=== PATIENT | male | born 1945 | race Caucasian/White ===

== ENCOUNTER 2019-09-26 20:23 | Inpatient (IN) | payer MEDICARE, OTHER ==
[~2019-09-26] VITALS: Ht 165.1 cm; Wt 59.9 kg
--- NOTE | 2019-09-26 21:07 | NUR ---
Pt medically cleared by Dr. Chang.
[2019-09-26] MEDS ORDERED: ATOR40TA PO (21:33)
[2019-09-26] MEDS ORDERED: ALBU8.5H8 IH (21:33)
[2019-09-26] MEDS ORDERED: MEMA5TAB15 PO (21:33)
[2019-09-26] MEDS ORDERED: TIOT18CA3 IH (21:33)
[2019-09-26] MEDS ORDERED: SACU1TAB PO (21:33)
[2019-09-26] MEDS ORDERED: FURO-152 PO (21:33)
[2019-09-26] MEDS ORDERED: FLUT1DIS29 IH (21:33)
--- NOTE | 2019-09-26 21:43 | NUR ---
Report given to Elvi CHAVEZ MHU.
--- NOTE | 2019-09-26 22:10 | NUR ---
New Admit Patient received into care from ED alert/oriented x1. Patient is pleasant and calm, with no complaints of pain or discomfort at this time. Patient is a poor historian related to his diagnosis of dementia. Medical history was mostly received from records of previous visits to [facility] from where patient was transferred. Patient has a history of diabetes mellitus 2, dementia, COPD, CHF, and atypical chest pain. All pertinent assessments were completed. Patient has no SI and has contracted to safety should SI arise. VS are wnl and patient is stable. Will continue to monitor.
[2019-09-26] MEDS ORDERED: ALBUTEROL SULFATE 8 GM HFA.AER.AD IH PRN (22:15)
[2019-09-26] MEDS ORDERED: ACETAMINOPHEN 325 MG TABLET PO PRN (23:15)
[2019-09-26] MEDS ORDERED: MAG HYDROX/AL HYDROX/SIMETH 30 ML LIQUID UDC PO PRN (23:15)
[2019-09-26] MEDS ORDERED: TEMAZEPAM 7.5 MG CAPSULE PO PRN (23:15)
[2019-09-26] MEDS ORDERED: LORAZEPAM 1 MG TABLET PO PRN (23:15)
[2019-09-26] MEDS ORDERED: BLOOD SUGAR DIAGNOSTIC 1 EACH STRIP VI ONE (23:15)
[2019-09-26] MEDS ORDERED: MAGNESIUM HYDROXIDE 30 ML LIQUID UDC PO PRN (23:15)
--- NOTE | 2019-09-27 06:57 | NUR ---
Patient slept comfortably after admission to department for a total of 5.15 hours. Patient had no complaints of pain or discomfort this shift and was compliant with all aspects of care. All nursing needs were met promptly and patient is resting comfortably in bed.
[2019-09-27 07:26] LABS: BILIRUBIN,TOTAL 0.4 mg/dL (0.2-1.0); POTASSIUM 4.1 mmol/L (3.5-5.1); TOTAL PROTEIN, SERUM 5.6 g/dL (6.4-8.2)
[2019-09-27 07:30] VITALS: BP 111/62
[2019-09-27 07:32] LABS: BASOPHILS # (AUTO) 0.1 K/uL (0.0-8.0); BASOPHILS % (AUTO) 1.3 % (0.0-2.0); EOSINOPHILS # (AUTO) 0.6 K/uL (0.0-0.7); EOSINOPHILS % (AUTO) 8.8 % (0.0-7.0); HEMATOCRIT 44.4 % (36.7-47.1); HEMOGLOBIN 14.5 g/dL (12.5-16.3); LYMPHOCYTES # (AUTO) 1.5 K/uL (20.0-40.0); LYMPHOCYTES % (AUTO) 21.2 % (20.5-51.5); MEAN CORPUSCULAR HEMOGLOBIN 30.6 uug (23.8-33.4); MEAN CORPUSCULAR HGB CONC 33 g/dL (32.5-36.3); MEAN CORPUSCULAR VOLUME 93.8 fL (73.0-96.2); MONOCYTES # (AUTO) 0.8 K/uL (2.0-10.0); MONOCYTES % (AUTO) 10.9 % (0.0-11.0); NEUTROPHILS # (AUTO) 4.1 K/uL (1.8-8.9); NEUTROPHILS % (AUTO) 57.8 % (38.5-71.5); PLATELET COUNT (AUTO) 203 K/uL (152-348); RED BLOOD CELL COUNT(AUTO) 4.73 MIL/uL (4.06-5.63); WHITE BLOOD COUNT (AUTO) 7.1 K/uL (3.6-10.2)
[2019-09-27] MEDS ORDERED: FLUTICASONE/SALMETEROL 500/50 EACH DISK.W.DEV IH SCH (09:00)
[2019-09-27] MEDS ORDERED: MEMANTINE HCL 5 MG TABLET PO SCH (09:00)
[2019-09-27] MEDS: FUROSEMIDE 20 MG TABLET PO SCH (09:03)
--- NOTE | 2019-09-27 13:25 | NUR ---
emergency service worker called pts Upholstery Estimator, Sanchez Valentin [[phone]] from Adult [employer] in attempts to gather further next of kin information for pt. SW left voicemail and will attempt to call Upholstery Estimator again at a later time.
--- NOTE | 2019-09-27 13:28 | NUR ---
solid waste collection worker called pts friend, Karo [[phone]], from to gather further next of kin information for pt. SW left voicemail and will attempt to call again at a later time.
[2019-09-27] MEDS: FLUTICASONE/VILANTEROL 1 EACH BLST.W.DEV INH SCH (13:54)
[2019-09-27] MEDS: IPRATROPIUM BROMIDE 0.5 MG/2.5 ML NEBU NEB SCH ×2 (14:00→18:07)
--- NOTE | 2019-09-27 14:02 | NUR ---
Initial discharge plan: Pt lives in his personal home located at [address] [place] [address]; [phone], with his roomate Tahmina. Pt provided consent to speak with his friend Tahmina [[phone]] regarding his hospitalization and discharge plan. Pt would like to discharge back home when ready. SW will work with pt, pt family, and MD to form a safe and proper discharge.
--- NOTE | 2019-09-27 15:46 | NUR ---
Family Contact: ammonia worker spoke with pts friend Karo [[phone]] who directed SW to speak with pts roomate, Tahmina Parra [[phone]], as she is the best contact to notify of pts plan of care and discharge planning.
--- NOTE | 2019-09-27 15:48 | NUR ---
Family contact: propeller layout worker spoke with pts aureluis Martel [[phone]] who shared that pt may need placement and higher level of care due to his dementia and because she is not well as she is receiving chemotherapy for cancer. SW will continue to work with pt, pt family, and MD to form a safe and proper discharge. SW will remain available to pt and pt family.
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
[2019-09-27 16:30] VITALS: BP 117/74
--- NOTE | 2019-09-27 16:59 | NUR ---
Gps/Dray Driver- Petr (step-son) from [place], [place]. called gave his tel # [phone], can call him anytime if needed . Claimed evety time this month , patient having difficulty related to his mother a year ago () . He was a Vet. and claimed he has full coverage . Exposed to H/orange that is why needed his inhalers .
[2019-09-27] MEDS ORDERED: PNEUMOCOCCAL 23-VAL P-SAC VAC 0.5 ML VIAL IM ONE (17:00)
[2019-09-27] MEDS ORDERED: INFLUENZA VACCINE 2019-2020 0.5 ML DISP.SYRIN IM ONE (17:00)
--- NOTE | 2019-09-27 19:30 | NUR ---
Received patient resting in bed, easily to arouse. A/Ox3. No signs of acute distress noted. No complaints at this time. Will continue to monitor.
[2019-09-27 20:18] VITALS: BP 104/63
[2019-09-27] MEDS: ATORVASTATIN 40 MG TABLET PO SCH (20:57)
--- NOTE | 2019-09-27 21:32 | NUR ---
Administered Pneumonia vaccine to the left deltoid. Was not administered during scheduled time due to medication not being available in the unit. Patient tolerated well. Will continue to monitor.
[2019-09-27] MEDS: risperiDONE 0.5 MG TABLET PO SCH (22:53)
[2019-09-27] MEDS: RIVASTIGMINE TARTRATE 1.5 MG CAPSULE PO SCH (22:53)
--- NOTE | 2019-09-27 23:32 | NUR ---
Patient seen and examined by Dr. Aguilar, with new orders noted and carried out.
[2019-09-28] MEDS: ALBUTEROL SULFATE 2.5 MG/3 ML NEBU NEB PRN ×2 (01:07→08:35)
[2019-09-28] MEDS: IPRATROPIUM BROMIDE 0.5 MG/2.5 ML NEBU NEB SCH ×5 (01:07→19:46)
[2019-09-28 08:00] VITALS: BP 95/56
[2019-09-28] MEDS: RIVASTIGMINE TARTRATE 1.5 MG CAPSULE PO SCH ×2 (08:27→20:21)
[2019-09-28] MEDS: risperiDONE 0.5 MG TABLET PO SCH ×2 (08:27→20:21)
[2019-09-28] MEDS: FUROSEMIDE 20 MG TABLET PO SCH (08:28)
[2019-09-28] MEDS: FLUTICASONE/VILANTEROL 1 EACH BLST.W.DEV INH SCH (08:29)
[2019-09-28 15:58] VITALS: BP 89/57
[2019-09-28 20:06] VITALS: BP 98/61
[2019-09-28] MEDS: ATORVASTATIN 40 MG TABLET PO SCH (20:21)
[2019-09-29] MEDS: IPRATROPIUM BROMIDE 0.5 MG/2.5 ML NEBU NEB SCH ×4 (00:30→19:36)
--- NOTE | 2019-09-29 05:43 | NUR ---
Patient slept 6.15 hours last night. Up early this am for a shower. In day room at this time watching TV. No distress noted but slightly anxious. Patient denies needing any medication at this time. Will continue to monitor. Addendum: 09/29/19 at 0547 by Heike Haynes RN Above noted entered on wrong patient.
--- NOTE | 2019-09-29 06:07 | NUR ---
Patient slept 6.15 hours. Up once for a breathing treatment. No acute resp distress noted, just some slight wheezing after ambulating to nurses station. Patient was easy to reorient during the night and compliant with medications.Continuing to monitor for safety.
[2019-09-29 08:04] VITALS: BP 112/57
[2019-09-29] MEDS: risperiDONE 0.5 MG TABLET PO SCH ×2 (08:44→21:33)
[2019-09-29] MEDS: FUROSEMIDE 20 MG TABLET PO SCH (08:44)
[2019-09-29] MEDS: RIVASTIGMINE TARTRATE 1.5 MG CAPSULE PO SCH ×2 (08:44→21:33)
[2019-09-29] MEDS: FLUTICASONE/VILANTEROL 1 EACH BLST.W.DEV INH SCH (08:51)
--- NOTE | 2019-09-29 13:05 | NUR ---
RN notified this RD that pt consistently requests Ensures with meals. Pt is diabetic, but his BGs have been within nl ranges lately, so I will begin sending Caterina KAUR to this pt. Addendum: 09/29/19 at [address] Amended: Links added.
[2019-09-29 16:09] VITALS: BP 103/50
[2019-09-29 20:00] VITALS: BP 102/54
[2019-09-29] MEDS: ATORVASTATIN 40 MG TABLET PO SCH (21:33)
[2019-09-30] MEDS: IPRATROPIUM BROMIDE 0.5 MG/2.5 ML NEBU NEB SCH ×4 (01:59→19:12)
[2019-09-30 07:30] VITALS: BP 94/51
[2019-09-30] MEDS: RIVASTIGMINE TARTRATE 1.5 MG CAPSULE PO SCH ×2 (08:21→20:10)
[2019-09-30] MEDS: FLUTICASONE/VILANTEROL 1 EACH BLST.W.DEV INH SCH (08:21)
[2019-09-30] MEDS: FUROSEMIDE 20 MG TABLET PO SCH (08:21)
[2019-09-30] MEDS: risperiDONE 0.5 MG TABLET PO SCH ×2 (08:21→20:10)
--- NOTE | 2019-09-30 09:15 | NUR ---
Eating well. Compliant with taking medications. Resting between care.
--- NOTE | 2019-09-30 11:26 | NUR ---
FIREARMS REPORT ([employer]): Intensive Care Specialist completed and submitted a [employer] firearms report for 5250 grave disability certification. A copy of report has been placed in patient chart.
[2019-09-30 15:58] VITALS: BP 105/58
--- NOTE | 2019-09-30 17:52 | NUR ---
Ambulating in the hallway earlier. Calm and compliant with care
[2019-09-30] MEDS: ATORVASTATIN 40 MG TABLET PO SCH (20:10)
[2019-09-30 20:17] VITALS: BP 101/54
[2019-10-01] MEDS: IPRATROPIUM BROMIDE 0.5 MG/2.5 ML NEBU NEB SCH ×4 (00:54→20:40)
[2019-10-01 07:30] VITALS: BP 118/61
[2019-10-01] MEDS: FUROSEMIDE 20 MG TABLET PO SCH (08:40)
[2019-10-01] MEDS: risperiDONE 0.5 MG TABLET PO SCH (08:40)
[2019-10-01] MEDS: RIVASTIGMINE TARTRATE 1.5 MG CAPSULE PO SCH ×2 (08:40→20:23)
[2019-10-01] MEDS: FLUTICASONE/VILANTEROL 1 EACH BLST.W.DEV INH SCH (08:43)
--- NOTE | 2019-10-01 15:12 | NUR ---
Family Contact SW Note: SW received a voicemail from Jimenez ([phone]), called back but unable to reach. Left voicemail.
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
[2019-10-01 15:48] VITALS: BP 90/52
[2019-10-01 17:00] VITALS: BP 105/67
--- NOTE | 2019-10-01 18:04 | NUR ---
Urine specimen sent as ordered to lab. Pt has been cooperative throughout shift and takes his medications as ordered. No Sob noted.
[2019-10-01] MEDS: ATORVASTATIN 40 MG TABLET PO SCH (20:22)
[2019-10-01] MEDS: risperiDONE 1 MG TABLET PO SCH (20:23)
[2019-10-01 20:29] LABS: *BILIRUBIN,URIN NEGATIVE (NEGATIVE); *BLOOD, URINE NEGATIVE (NEGATIVE); *CLARITY,URINE CLEAR (CLEAR); *COLOR,URINE YELLOW (YELLOW); *KETONES,URINE NEGATIVE (NEGATIVE); *UROBILINOGEN,URINE 0.2 E.U./dl (NORMAL); LEUKOCYTE ESTERASE ,URINE NEGATIVE (NEGATIVE); NITRITE, URINE NEGATIVE (NEGATIVE); PH,URINE 5.5 (5.0-8.0); UGLUCOSE NEGATIVE (NEGATIVE)
[2019-10-01] MEDS ORDERED: risperiDONE 0.5 MG TABLET PO SCH (21:00)
[2019-10-01 21:02] VITALS: BP 118/69
[2019-10-02] MEDS: IPRATROPIUM BROMIDE 0.5 MG/2.5 ML NEBU NEB SCH ×4 (01:30→20:03)
--- NOTE | 2019-10-02 05:48 | NUR ---
Patient slept 7 hours. Still in bed asleep. Showered patient last night. No distress or issues noted.
[2019-10-02 07:30] VITALS: BP 99/53
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
--- NOTE | 2019-10-02 08:58 | NUR ---
Discharge Planning: SW called the [facility] , to inquire about possible longterm placement for the patient post discharge. Was informed will be receiving a call back from their nurse regarding this matter. Awaiting call back today.
[2019-10-02] MEDS: FUROSEMIDE 20 MG TABLET PO SCH (09:16)
[2019-10-02] MEDS: risperiDONE 0.5 MG TABLET PO SCH (09:16)
[2019-10-02] MEDS: RIVASTIGMINE TARTRATE 1.5 MG CAPSULE PO SCH ×2 (09:16→20:29)
[2019-10-02] MEDS: FLUTICASONE/VILANTEROL 1 EACH BLST.W.DEV INH SCH (09:16)
[2019-10-02 16:24] VITALS: BP 92/55
[2019-10-02 19:51] VITALS: BP 109/54
[2019-10-02] MEDS: ATORVASTATIN 40 MG TABLET PO SCH (20:29)
[2019-10-02] MEDS: risperiDONE 1 MG TABLET PO SCH (20:29)
--- NOTE | 2019-10-02 21:00 | NUR ---
@1900 Received patient in the patients lounge with peers A/Ox3. No signs of acute distress noted. No complaints at this time. Will continue to monitor
[2019-10-03] MEDS: IPRATROPIUM BROMIDE 0.5 MG/2.5 ML NEBU NEB SCH ×4 (00:49→19:58)
--- NOTE | 2019-10-03 06:25 | NUR ---
Patient slept for 6 hrs and 45mins.
[2019-10-03 07:30] VITALS: BP 97/60
[2019-10-03] MEDS: risperiDONE 0.5 MG TABLET PO SCH (09:44)
[2019-10-03] MEDS: FLUTICASONE/VILANTEROL 1 EACH BLST.W.DEV INH SCH (09:44)
[2019-10-03] MEDS: RIVASTIGMINE TARTRATE 1.5 MG CAPSULE PO SCH ×2 (09:44→20:17)
[2019-10-03] MEDS: FUROSEMIDE 20 MG TABLET PO SCH (09:45)
--- NOTE | 2019-10-03 12:55 | NUR ---
Social work note/discharge planning: foundry worker sent a referral packet to the following assisted facilities for review and possible placement: [facility] (ph: ; ) spoke with Edwina (admin coordinator) who is reviewing the referral packet. [facility], spoke with Cherry (admin coordinator) (ph: [phone]; fax: [phone]) stated they do not have any male bed available at this time. [facility] (ph: [phone]) left a message for Milka (admin coordinator).
[2019-10-03] MEDS: ALBUTEROL SULFATE 2.5 MG/3 ML NEBU NEB PRN (13:22)
--- NOTE | 2019-10-03 15:33 | NUR ---
Social work note/discharge planning update: dimension mill worker spoke with patient's step-son, Petr [phone]) who stated that he would like patient to go to [facility] ([phone]). dimension mill worker faxed a referral packet to Ronald (admin coordinator) at the facility for review.
[2019-10-03 16:00] VITALS: BP 96/49
[2019-10-03 20:09] VITALS: BP 104/57
[2019-10-03] MEDS: ATORVASTATIN 40 MG TABLET PO SCH (20:17)
[2019-10-03] MEDS: risperiDONE 1 MG TABLET PO SCH (20:17)
[2019-10-04] MEDS: IPRATROPIUM BROMIDE 0.5 MG/2.5 ML NEBU NEB SCH ×2 (00:30→07:20)
--- NOTE | 2019-10-04 06:28 | NUR ---
PT SLEPT 8.15 H. PT IN NO ACUTE DISTRESS. PRESCRIBED MEDICATION GIVEN AND PT TOLERATED IT WELL. SAFETY AND COMFORT PROVIDED. WILL CONTINUE TO MONITOR.
[2019-10-04 07:30] VITALS: BP 112/65
[2019-10-04] MEDS: FUROSEMIDE 20 MG TABLET PO SCH (08:07)
[2019-10-04] MEDS: RIVASTIGMINE TARTRATE 1.5 MG CAPSULE PO SCH (08:07)
[2019-10-04] MEDS: risperiDONE 0.5 MG TABLET PO SCH (08:08)
[2019-10-04] MEDS: FLUTICASONE/VILANTEROL 1 EACH BLST.W.DEV INH SCH (08:13)
--- NOTE | 2019-10-04 08:23 | NUR ---
Social work note/Discharge Note: Patient will be discharged to [facility] [[address] [place] [address]; ). Please arrange Ambulance transportation for patient at 11:30am. Spoke with Kristine [Admin Coordinator] at the facility who states they are ready to accept the patient today. Patient is alert and oriented x2-3, denies suicidal or homicidal ideation, and is aware and agreeable with discharge plans. Patients Petr Tunrer ([phone]) is made aware and agreeable with discharge plans. The patient is unable to provide for self-care at this time, however, is willing to accept care at the facility. The patient presents with calm mood and euthymic affect at this time. Patient will follow-up at the facility with Dr. Aguilar (Psychiatrist) and Dr. Levy (Pet Care Attendant).
--- NOTE | 2019-10-04 12:17 | NUR ---
PT LEFT UNIT AT THIS TIME ON [facility] ACCOMPANIED BY 2 BLOOD BANK TECHNICIAN. CALM AND COOPERATIVE. DENIES PAIN OR DISCOMFORT. DENIES SI. PLEASANT UPON APPROACH. LEFT WITH ALL NOTED BELONGINGS AND VALUABLES, AND PAPERWORK. ABLE TO MAKE ALL NEEDS KNOWN. V/S STABLE. IN NO ACUTE DISTRESS.
== END 2019-10-04 12:20 | DRG 885 ==
LOC: ER 20:23 → GPS 21:53
PROVIDERS: ADMIT Psychiatry & Neurology Psychiatry; ATTEND Internal Medicine
DX: F29 Unspecified psychosis not due to a substance or known physiological condition (principal); I11.0 Hypertensive heart disease with heart failure; E44.1 Mild protein-calorie malnutrition; I50.9 Heart failure, unspecified; J44.9 Chronic obstructive pulmonary disease, unspecified; F03.90 Unspecified dementia, unspecified severity, without behavioral disturbance, psychotic disturbance, mood disturbance, and anxiety; E11.9 Type 2 diabetes mellitus without complications; Z79.899 Other long term (current) drug therapy; M19.90 Unspecified osteoarthritis, unspecified site; Z79.51 Long term (current) use of inhaled steroids; R94.31 Abnormal electrocardiogram [ECG] [EKG]; F41.9 Anxiety disorder, unspecified
CPT/HCPCS: 36415; 85025; 87086; 90686; 90732; 93005; 94640; 94664; A4663; J3590